=== PATIENT | female | born 1980 | race Caucasian/White ===

== ENCOUNTER 2016-12-26 15:14 | Emergency (ER) | payer SELFPAY ==
--- NOTE | 2016-12-26 16:30 | ER Document Report ---
ED Medical Screen (RME) - General Chief Complaint: Pain With Urination Stated Complaint: POSSIBLE UTI Time seen by provider: 16:27 Mode of Arrival: Ambulatory Information source: Patient Notes: This is a 36-year-old female with a history of multiple UTIs who presents to the emergency room with some lower back pain and frequency consistent with previous UTI. Patient denies nausea, vomiting, fever. She denies vaginal discharge. She states that she just started her period. TRAVEL OUTSIDE OF THE [place] IN LAST 30 DAYS: No - HPI Onset: Just prior to arrival Onset/Duration: Gradual Quality of pain: No pain Severity: None Pain Level: Denies Exacerbated by: Denies Relieved by: Denies Similar symptoms previously: Yes Recently seen / treated by doctor: No - Related Data Smoking: Non-smoker Frequency of alcohol use: None Drug Abuse: None Allergies/Adverse Reactions: No Known Allergies Allergy (Verified 12/26/16 15:31) Past Medical History - General Information source: Patient - Social History Cigarette use (# per day): No Chew tobacco use (# tins/day): No Frequency of alcohol use: None Drug Abuse: None Lives with: Family Family history: Reviewed & Not Pertinent - Past Medical History Cardiac Medical History: Reports: None EENT Medical History: Reports: None Neurological Medical History: Reports: None. Denies: Hx Seizures Endocrine Medical History: Reports: None Renal/ Medical History: Reports: Hx Ovarian Cysts, Other - Multiple UTIs. Denies: Hx Peritoneal Dialysis Malignancy Medical History: Reports: None GI Medical History: Reports: None Musculoskeltal Medical History: Reports None Skin Medical History: Reports None Psychiatric Medical History: Reports: Hx Depression Past Surgical History: Reports: Hx Cholecystectomy, Hx Tubal Ligation. Denies: Hx Hysterectomy - Immunizations Hx Diphtheria, Pertussis, Tetanus Vaccination: Yes Review of Systems - Review of Systems Constitutional: denies: Chills, Fever EENT: No symptoms reported Cardiovascular: No symptoms reported Respiratory: No symptoms reported Gastrointestinal: No symptoms reported Genitourinary: See HPI Female Genitourinary: No symptoms reported Musculoskeletal: See HPI Skin: No symptoms reported Hematologic/Lymphatic: No symptoms reported Neurological/Psychological: No symptoms reported Physical Exam - Vital signs Vitals: Temp Pulse Resp BP Pulse Ox 98.6 F 90 16 124/86 H 99 12/26/16 15:34 12/26/16 15:34 12/26/16 15:34 12/26/16 15:34 12/26/16 15:34 Notes: Physical exam: GENERAL: 36-year-old female, alert and at 3, no acute distress HEAD: Atraumatic, normocephalic. EYES: Pupils equal round and reactive to light, extraocular movements intact, sclera anicteric, conjunctiva are normal. ENT: Moist mucous membranes. NECK: Normal range of motion, supple LUNGS: Breath sounds clear to auscultation bilaterally and equal. No wheezes rales or rhonchi. HEART: Regular rate and rhythm without murmurs, rubs or gallops. ABDOMEN: Soft, normoactive bowel sounds. No tenderness to palpation. No guarding, no rebound. No masses appreciated. EXTREMITIES: Normal range of motion, no pitting or edema. No clubbing or cyanosis. NEUROLOGICAL: Cranial nerves II through XII grossly intact. Normal speech, normal gait. PSYCH: Normal mood, normal affect. SKIN: Warm, Dry, normal turgor, no rashes or lesions noted. Course - Vital Signs Vital signs: Temp Pulse Resp BP Pulse Ox 98.6 F 90 16 124/86 H 99 12/26/16 15:34 12/26/16 15:34 12/26/16 15:34 12/26/16 15:34 12/26/16 15:34 - Laboratory Result Diagrams: 12/26/16 16:30 12/26/16 17:10 Laboratory results interpreted by me: 12/26/16 16:30 Urine Blood MODERATE H Ur Leukocyte Esterase TRACE H Doctor's Discharge - Discharge Clinical Impression: back pain, fatigue Condition: Stable Disposition: HOME, SELF-CARE Additional Instructions: As we discussed, your kidney function tests looked good. The initial urinalysis looked okay, but I did send a urine culture which will take 2 days to come back. Your anemia studies sugar studies look good. Recommendations: Rest, drink plenty of fluids, take ibuprofen for back pain Follow-up with a primary care doctor: Bring a copy of today's labs with the with you when you go to that appointment. Return to the ER for any concerns he getting worse: Worsening back pain, fever ( temperature greater than 100.5), abdominal pain.
[2016-12-26 16:55] LABS: ABSOLUTE BASOPHILS # (AUTO) 0.1 10^3/uL (0.0-0.2); ABSOLUTE EOSINOPHILS # (AUTO) 0.1 10^3/uL (0.0-0.6); ABSOLUTE LYMPHOCYTES (AUTO) 2.5 10^3/uL (0.5-4.7); ABSOLUTE MONOCYTES (AUTO) 0.6 10^3/uL (0.1-1.4); ABSOLUTE NEUT (AUTO) 4.3 10^3/uL (1.7-8.2); BASOPHILS % (AUTO) 0.7 % (0-2); EOSINOPHILS % (AUTO) 1.3 % (0-6); HEMATOCRIT 40.8 % (36.0-47.0); HEMOGLOBIN 13.6 g/dL (12.0-15.5); LYMPHOCYTES % (AUTO) 33.5 % (13-45); MEAN CORPUSCULAR HEMOGLOBIN 29.1 pg (27.0-33.4); MEAN CORPUSCULAR HGB CONC 33.3 g/dL (32.0-36.0); MEAN CORPUSCULAR VOLUME 87 fl (80-97); MONOCYTES % (AUTO) 7.7 % (3-13); RED BLOOD COUNT 4.67 10^6/uL (3.72-5.28); RED CELL DISTRIBUTION WIDTH 13.5 % (11.5-14.0); SEGMENTED NEUTROPHILS % (AUTO) 56.8 % (42-78); WHITE BLOOD COUNT 7.6 10^3/uL (4.0-10.5)
[2016-12-26 16:58] LABS: APPEARANCE,URINE CLEAR; BILIRUBIN,URINE NEGATIVE (NEGATIVE); GLUCOSE, URINE NEGATIVE (NEGATIVE); KETONES,URINE NEGATIVE (NEGATIVE); LEUKOCYTE ESTERASE,URINE TRACE (NEGATIVE); NITRITE,URINE NEGATIVE (NEGATIVE); PROTEIN,URINE NEGATIVE (NEGATIVE); URINE SPECIFIC GRAVITY 1.004; UROBILINOGEN,URINE NEGATIVE mg/dL (<2.0)
[2016-12-26 17:44] LABS: BLOOD UREA NITROGEN 9 mg/dL (7-20); CALCIUM 9.9 mg/dL (8.4-10.2); CARBON DIOXIDE 25 mmol/L (22-30); CHLORIDE 105 mmol/L (98-107); CREATININE RESULT 0.73 mg/dL (0.52-1.25); GLUCOSE 90 mg/dL (75-110); SODIUM 141.9 mmol/L (137-145)
[2016-12-26 17:45] LABS: ALANINE AMINOTRANSFERASE 32 U/L (9-52); ALBUMIN 4.3 g/dL (3.5-5.0); ALKALINE PHOSPHATASE 65 U/L (38-126); ANION GAP 12 (5-19); ASPARTATE AMINO TRANSFERASE 18 U/L (14-36); BILIRUBIN,DIRECT 0.3 mg/dL (0.0-0.4); BILIRUBIN,TOTAL 0.7 mg/dL (0.2-1.3); POTASSIUM 4.6 mmol/L (3.6-5.0); TOTAL PROTEIN 7.8 g/dL (6.3-8.2)
[2016-12-26 18:04] VITALS: BP 112/84
== END 2016-12-26 18:05 | disposition home or self-care (01) ==
LOC: ER 15:14
DX: M54.5 Low back pain (principal); R53.83 Other fatigue; Z87.440 Personal history of urinary (tract) infections
CPT/HCPCS: 36415; 80053; 81001; 84702; 85025; 87086; 99283

== ENCOUNTER 2017-04-20 10:33 | Emergency (ER) | payer OTHER ==
[2017-04-20] MEDS ORDERED: MORPHINE SULFATE 10 MG/ML INJ IM ONE (11:09)
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
[2017-04-20 12:38] VITALS: BP 120/80
== END 2017-04-20 12:38 | disposition home or self-care (01) ==
LOC: ER 10:33
DX: S39.012A Strain of muscle, fascia and tendon of lower back, initial encounter (principal); S16.1XXA Strain of muscle, fascia and tendon at neck level, initial encounter; V43.52XA Car driver injured in collision with other type car in traffic accident, initial encounter; M54.2 Cervicalgia
CPT/HCPCS: 99284; 96372; 72110; 72125; J2270

== ENCOUNTER 2017-04-21 16:25 | Emergency (ER) | payer OTHER ==
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
[2017-04-21 17:53] LABS: ABSOLUTE EOSINOPHILS # (AUTO) 0.2 10^3/uL (0.0-0.6); ABSOLUTE LYMPHOCYTES (AUTO) 2.3 10^3/uL (0.5-4.7); ABSOLUTE MONOCYTES (AUTO) 0.6 10^3/uL (0.1-1.4); BASOPHILS % (AUTO) 0.5 % (0-2); EOSINOPHILS % (AUTO) 2.7 % (0-6); HEMATOCRIT 37.7 % (36.0-47.0); HEMOGLOBIN 12.5 g/dL (12.0-15.5); HGB HCT DIFFERENCE -0.2; LYMPHOCYTES % (AUTO) 32.8 % (13-45); MEAN CORPUSCULAR HEMOGLOBIN 29.5 pg (27.0-33.4); MEAN CORPUSCULAR HGB CONC 33.3 g/dL (32.0-36.0); MEAN CORPUSCULAR VOLUME 89 fl (80-97); MONOCYTES % (AUTO) 7.9 % (3-13); RED BLOOD COUNT 4.25 10^6/uL (3.72-5.28); RED CELL DISTRIBUTION WIDTH 13.5 % (11.5-14.0); SEGMENTED NEUTROPHILS % (AUTO) 56.1 % (42-78); WHITE BLOOD COUNT 7.1 10^3/uL (4.0-10.5)
[2017-04-21 18:07] LABS: APPEARANCE,URINE SLIGHTLY-CLOUDY; BILIRUBIN,URINE NEGATIVE (NEGATIVE); GLUCOSE, URINE NEGATIVE (NEGATIVE); KETONES,URINE NEGATIVE (NEGATIVE); LEUKOCYTE ESTERASE,URINE MODERATE (NEGATIVE); NITRITE,URINE NEGATIVE (NEGATIVE); PROTEIN,URINE NEGATIVE (NEGATIVE)
[2017-04-21 18:12] LABS: ALANINE AMINOTRANSFERASE 28 U/L (9-52); ALKALINE PHOSPHATASE 64 U/L (38-126); ANION GAP 11 (5-19); ASPARTATE AMINO TRANSFERASE 18 U/L (14-36); BILIRUBIN,DIRECT 0.4 mg/dL (0.0-0.4); BILIRUBIN,TOTAL 0.4 mg/dL (0.2-1.3); BLOOD UREA NITROGEN 7 mg/dL (7-20); CALCIUM 9.4 mg/dL (8.4-10.2); CARBON DIOXIDE 28 mmol/L (22-30); CHLORIDE 103 mmol/L (98-107); CREATININE RESULT 0.77 mg/dL (0.52-1.25); GLUCOSE 83 mg/dL (75-110); LIPASE 61.3 U/L (23-300); POTASSIUM 3.7 mmol/L (3.6-5.0); SODIUM 141.6 mmol/L (137-145); TOTAL PROTEIN 7.2 g/dL (6.3-8.2)
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
[2017-04-21 19:29] VITALS: BP 116/77
== END 2017-04-21 19:26 | disposition home or self-care (01) ==
LOC: ER 16:25
DX: N30.01 Acute cystitis with hematuria (principal); R10.2 Pelvic and perineal pain; R10.9 Unspecified abdominal pain; R51 Headache; M54.2 Cervicalgia; M54.9 Dorsalgia, unspecified; V89.2XXD Person injured in unspecified motor-vehicle accident, traffic, subsequent encounter
CPT/HCPCS: 36415; 70450; 74177; 80053; 81001; 83690; 84703; 85025; 99284

== ENCOUNTER 2018-04-02 09:34 | Emergency (ER) | payer OTHER ==
[2018-04-02] MEDS ORDERED: BACLOFEN 20 MG TABLET PO ONE (10:21)
[2018-04-02] MEDS ORDERED: KETOROLAC TROMETHAMINE INJ/PF 30 MG/1 ML SDV IV ONE (10:21)
--- NOTE | 2018-04-02 10:22 | ER Document Report ---
ED Medical Screen (RME) - General Chief Complaint: Abdominal Pain Stated Complaint: PELVIC PAIN Time Seen by Provider: 04/02/18 10:19 Notes: 37 years old female presents today with right lower quadrant abdominal pain as well as right lower back pain sometimes radiating to the upper thigh. Going on for the last few days. She was moving furniture last week. Has a history of polycystic ovarian syndrome. Denies any dysuria frequency urgency. Denies any nausea vomiting. Denies any fever chills or other constitutional symptoms. TRAVEL OUTSIDE OF THE [place] IN LAST 30 DAYS: No - Related Data Allergies/Adverse Reactions: No Known Allergies Allergy (Verified 04/21/17 16:31) Past Medical History - Social History Family history: Reviewed & Not Pertinent Neurological Medical History: Denies: Hx Seizures Renal/ Medical History: Reports: Hx Ovarian Cysts. Denies: Hx Peritoneal Dialysis Psychiatric Medical History: Reports: Hx Depression Past Surgical History: Reports: Hx Cholecystectomy, Hx Tubal Ligation. Denies: Hx Hysterectomy - Immunizations Hx Diphtheria, Pertussis, Tetanus Vaccination: Yes Physical Exam - Vital signs Vitals: Temp Pulse Resp BP Pulse Ox 98.1 F 77 16 132/91 H 98 04/02/18 10:05 04/02/18 10:05 04/02/18 10:05 04/02/18 10:05 04/02/18 10:05 Course - Vital Signs Vital signs: Temp Pulse Resp BP Pulse Ox 98.1 F 77 16 132/91 H 98 04/02/18 10:05 04/02/18 10:05 04/02/18 10:05 04/02/18 10:05 04/02/18 10:05 Doctor's Discharge - Discharge Referrals: KARI DUNLAP MD [Primary Care Provider] - Follow up as needed
[2018-04-02 11:14] LABS: ABSOLUTE EOSINOPHILS # (AUTO) 0.2 10^3/uL (0.0-0.6); ABSOLUTE LYMPHOCYTES (AUTO) 2.4 10^3/uL (0.5-4.7); ABSOLUTE MONOCYTES (AUTO) 0.4 10^3/uL (0.1-1.4); ABSOLUTE NEUT (AUTO) 2.9 10^3/uL (1.7-8.2); BASOPHILS % (AUTO) 0.8 % (0-2); EOSINOPHILS % (AUTO) 3.3 % (0-6); HEMOGLOBIN 14.8 g/dL (12.0-15.5); LYMPHOCYTES % (AUTO) 40.6 % (13-45); MEAN CORPUSCULAR HEMOGLOBIN 30.1 pg (27.0-33.4); MEAN CORPUSCULAR HGB CONC 34.4 g/dL (32.0-36.0); MEAN CORPUSCULAR VOLUME 88 fl (80-97); MONOCYTES % (AUTO) 6.5 % (3-13); PLATELET COUNT 324 10^3/uL (150-450); RED BLOOD COUNT 4.91 10^6/uL (3.72-5.28); RED CELL DISTRIBUTION WIDTH 13.6 % (11.5-14.0); SEGMENTED NEUTROPHILS % (AUTO) 48.8 % (42-78); TOTAL CELLS COUNTED % (AUTO) 100 %
--- NOTE | 2018-04-02 11:18 | RADIOLOGY REPORT (SQ) ---
EXAM DESCRIPTION: L SPINE WHOLE COMPLETED DATE/TIME: 04/02/2018 11:07 am REASON FOR STUDY: Back pain COMPARISON: 04/20/2017 NUMBER OF VIEWS: Five views including obliques. TECHNIQUE: AP, lateral, oblique, and sacral radiographic images acquired of the lumbar spine. LIMITATIONS: None. FINDINGS: MINERALIZATION: Normal. SEGMENTATION: Normal. No transitional anatomy. ALIGNMENT: Normal. VERTEBRAE: Maintained height. No fracture or worrisome bone lesion. DISCS: Preserved height. No significant osteophytes or end plate irregularity. POSTERIOR ELEMENTS: Pedicles and facets are intact. No pars defect or posterior arch defects. HARDWARE: None in the spine. PARASPINAL SOFT TISSUES: Normal. PELVIS: Intact as visualized. No fractures or worrisome bone lesions. SI joints intact. OTHER: No other significant finding. IMPRESSION: NORMAL 5 VIEW LUMBAR SPINE. TECHNICAL DOCUMENTATION: JOB ID: [id number] [employer]- All Rights Reserved Reading location - IP/workstation name: [email or web address]
[2018-04-02 11:31] LABS: APPEARANCE,URINE CLOUDY; BILIRUBIN,URINE NEGATIVE (NEGATIVE); COLOR,URINE YELLOW; GLUCOSE, URINE NEGATIVE (NEGATIVE); KETONES,URINE NEGATIVE (NEGATIVE); LEUKOCYTE ESTERASE,URINE LARGE (NEGATIVE); NITRITE,URINE NEGATIVE (NEGATIVE); PROTEIN,URINE NEGATIVE (NEGATIVE); UROBILINOGEN,URINE NEGATIVE mg/dL (<2.0)
[2018-04-02 11:35] LABS: ALANINE AMINOTRANSFERASE 29 U/L (9-52); ALBUMIN 4.4 g/dL (3.5-5.0); ALKALINE PHOSPHATASE 72 U/L (38-126); ANION GAP 9 (5-19); ASPARTATE AMINO TRANSFERASE 29 U/L (14-36); BILIRUBIN,DIRECT 0.2 mg/dL (0.0-0.4); BILIRUBIN,TOTAL 0.4 mg/dL (0.2-1.3); BLOOD UREA NITROGEN 10 mg/dL (7-20); CALCIUM 9.2 mg/dL (8.4-10.2); CARBON DIOXIDE 28 mmol/L (22-30); CHLORIDE 106 mmol/L (98-107); GLUCOSE 84 mg/dL (75-110); SODIUM 142.9 mmol/L (137-145); TOTAL PROTEIN 8.6 g/dL (6.3-8.2)
--- NOTE | 2018-04-02 13:20 | ER Document Report ---
ED General - General Chief Complaint: Abdominal Pain Stated Complaint: PELVIC PAIN Time Seen by Provider: 04/02/18 10:19 Mode of Arrival: Ambulatory Information source: Patient TRAVEL OUTSIDE OF THE [place] IN LAST 30 DAYS: No - HPI Notes: 37-year-old female presents to the ED for right ovarian cyst pain radiates to her back 1 week. states she was moving furniture last week as well as a history of PCOS. Last menstrual period was 2 weeks ago. Patient states she has had a right ovarian cyst. Patient's last bowel movement was last night. denies any vaginal bleeding or pelvic pain. Patient supposed to be seen [facility] [employer] [facility] but cannot be seen until April 15. Patient states pain comes and goes, 5/10 throbbing and sharp intermittently. Denies fevers, chills, chest pain, palpitations, shortness of breath, dyspnea, nausea, vomiting, diarrhea, abdominal pain, hematuria,blurred vision, double vision, loss of vision, speech changes, LH, dizziness, syncope, headaches, wheezing, ST, URI, neck pain, weakness, bowel or bladder dysfunction, saddle anesthesia, numbness or tingling in bilateral upper or lower extremities equally, muscle paralysis, weakness in bilateral upper or lower extremities equally or rash. Denies IV drug use. - Related Data Allergies/Adverse Reactions: No Known Allergies Allergy (Verified 04/21/17 16:31) Past Medical History - General Information source: Patient - Social History Smoking Status: Never Smoker Family History: Reviewed & Not Pertinent Patient has suicidal ideation: No Patient has homicidal ideation: No Neurological Medical History: Denies: Hx Seizures Renal/ Medical History: Reports: Hx Ovarian Cysts. Denies: Hx Peritoneal Dialysis Psychiatric Medical History: Reports: Hx Depression Past Surgical History: Reports: Hx Cholecystectomy, Hx Tubal Ligation. Denies: Hx Hysterectomy - Immunizations Hx Diphtheria, Pertussis, Tetanus Vaccination: Yes Review of Systems - Review of Systems Constitutional: No symptoms reported EENT: No symptoms reported Cardiovascular: No symptoms reported Respiratory: No symptoms reported Gastrointestinal: See HPI Genitourinary: See HPI Female Genitourinary: No symptoms reported Musculoskeletal: No symptoms reported Skin: No symptoms reported Hematologic/Lymphatic: No symptoms reported Neurological/Psychological: No symptoms reported Physical Exam - Vital signs Vitals: Temp Pulse Resp BP Pulse Ox 98.1 F 77 16 132/91 H 98 04/02/18 10:05 08/07/18 10:05 04/02/18 10:05 04/02/18 10:05 04/02/18 10:05 - Notes Notes: PHYSICAL EXAMINATION: GENERAL: Well-appearing, well-nourished and in no acute distress. HEAD: Atraumatic, normocephalic. EYES: Pupils equal round and reactive to light, extraocular movements intact, conjunctiva are normal. ENT: Nares patent, oropharynx clear without exudates. Moist mucous membranes. NECK: Normal range of motion, supple without lymphadenopathy LUNGS: Breath sounds clear to auscultation bilaterally and equal. No wheezes rales or rhonchi. HEART: Regular rate and rhythm without murmurs ABDOMEN: Soft, nontender, nondistended abdomen. No guarding, no rebound. No masses appreciated. no cva tenderness bilaterally Female : pt refused Musculoskeletal: Normal range of motion, no pitting or edema. No cyanosis. Full range of motion of the back with flexion extension and rotation at hips. Normal hip rotation. DTR +2 in BLE equally. Strength 5 out of 5 both distally and proximally to bilateral lower extremities normal motor and sensory function in BLE equally. Distal pulses + 2 BLE equally. No lumbar paraspinal or spinal tenderness noted on examination. no CVA tenderness bilaterally. Femoral pulses + 2 bilaterally and equally. No abrasions, scars, lacerations, ecchymosis of any recent trauma. normal gait. NEUROLOGICAL: Cranial nerves grossly intact. Normal speech, normal gait. Normal sensory, motor exams. PSYCH: Normal mood, normal affect. SKIN: Warm, Dry, normal turgor, no rashes or lesions noted. Course - Re-evaluation Re-evalutation: 04/02/18 14:09 37-year-old female history of PCOS presents for evaluation of right ovarian cyst pain. Transvaginal ultrasound does show system fundus, free fluid, transvaginal ultrasound otherwise negative. Lumbar spine x-ray which was ordered in triage was negative for any acute fracture dislocations. CBC CMP unremarkable. Urinalysis shows a culture. Advised patient to follow-up with OB [facility] tomorrow for further. Patient states she was taking control to manage her PCO S, stopped taking because she had not seen the [facility] [employer] in a very long time. Patient did not want to do pelvic examination. Patient states her pain is under control after receiving Toradol and baclofen while in triage. after performing a Medical Screening Examination, I estimate there is LOW risk for ACUTE APPENDICITIS, BOWEL OBSTRUCTION, ACUTE CHOLECYSTITIS, osteomyelitis, epidural mass abscess or lesion, cauda equina syndrome, ruptured abdominal aortic aneurysm, personal history of cancer, herniated disc causing severe spinal stenosis cord compression, fracture, PERFORATED DIVERTICULITIS, INCARCERATED HERNIA, PANCREATITIS, PELVIC INFLAMMATORY DISEASE, PERFORATED ULCER , ECTOPIC , or TUBO-OVARIAN ABSCESS, thus I consider the discharge disposition reasonable. Also, there is no evidence or peritonitis, sepsis, or toxicity. I have reevaluated this patient multiple times and no significant life threatening changes are noted. The patient and I have discussed the diagnosis and risks, and we agree with discharging home with close follow-up with the understanding that symptoms and presentations can change. We also discussed returning to the Emergency Department immediately if new or worsening symptoms occur. We have discussed the symptoms which are most concerning (e.g., bloody stool, fever, weakness, numbness or tingling down bilateral lower extremities, change in bowel or bladder dysfunction changing or worsening pain, vomiting) that necessitate immediate return. - Vital Signs Vital signs: Temp Pulse Resp BP Pulse Ox 97.7 F 68 18 103/51 L 97 04/02/18 14:13 04/02/18 14:13 04/02/18 14:13 04/02/18 14:13 04/02/18 14:13 - Laboratory Result Diagrams: 04/02/18 10:39 04/02/18 10:39 Laboratory results interpreted by me: 04/02/18 04/02/18 10:39 10:39 Total Protein 8.6 H Ur Leukocyte Esterase LARGE H Discharge - Discharge Clinical Impression: Uterine fibroid Qualifiers: Uterine leiomyoma location: unspecified location Qualified Code(s): D25.9 - Leiomyoma of uterus, unspecified Condition: Stable Disposition: HOME, SELF-CARE Forms: Return to Work Referrals: KARI DUNLAP MD [Primary Care Provider] - Follow up in 3-5 days MAGGY ALMEIDA MD [ACTIVE STAFF] - Follow up in 3-5 days
--- NOTE | 2018-04-02 13:26 | RADIOLOGY REPORT (SQ) ---
EXAM DESCRIPTION: U/S NON OB PEL TV W/DOPPLER COMPLETED DATE/TIME: 04/02/2018 1:09 pm REASON FOR STUDY: Ovarian cyst COMPARISON: 12/15/2014 TECHNIQUE: Dynamic and static grayscale images acquired of the pelvis via transvaginal approach and recorded on PACS. Additional selected color Doppler and spectral images recorded. LIMITATIONS: None. FINDINGS: UTERUS: 2 cm fibroid posterior fundus. ENDOMETRIAL STRIPE: No focal or generalized thickening. No masses. CERVIX: No nabothian cysts. RIGHT OVARY AND DOPPLER: Normal size. No worrisome masses. Normal arterial vascular flow without evid ence for torsion. LEFT OVARY AND DOPPLER: Ovary not visualized. FREE FLUID: None noted. OTHER: No other significant finding. MEASUREMENTS: UTERUS: 9.2 x 6.2 x 5.6 cm ENDOMETRIAL STRIPE: 6 mm RIGHT OVARY: 3.3 x 2.4 x 1.7 cm LEFT OVARY: Not visualized. IMPRESSION: Uterine fibroid. No ovarian cyst identified. TECHNICAL DOCUMENTATION: JOB ID: [id number] [employer]- All Rights Reserved Reading location - IP/workstation name: [email or web address]
[2018-04-02 14:15] VITALS: BP 103/51
== END 2018-04-02 14:21 | disposition home or self-care (01) ==
LOC: ER 09:34
DX: D25.9 Leiomyoma of uterus, unspecified (principal); E28.2 Polycystic ovarian syndrome
CPT/HCPCS: 99284; 96374; 36415; 87086; 85025; 81025; 80053; 81001; 72110; 76830; 93976; J1885; J3490

== ENCOUNTER 2018-09-28 17:52 | Emergency (ER) | payer SELFPAY ==
[2018-09-28] MEDS ORDERED: ACETAMINOPHEN 325 MG TABLET PO ONE (18:28)
[2018-09-28] MEDS ORDERED: IBUPROFEN 600 MG TABLET PO ONE (18:28)
--- NOTE | 2018-09-28 19:12 | RADIOLOGY REPORT (SQ) ---
EXAM DESCRIPTION: SACRUM AND COCCYX COMPLETED DATE/TIME: 09/28/2018 6:53 pm REASON FOR STUDY: fall, pain COMPARISON: None. NUMBER OF VIEWS: Three views. TECHNIQUE: AP, lateral, and tilt views of the sacrum and coccyx. LIMITATIONS: None. FINDINGS: MINERALIZATION: Normal. BONES: No acute fracture or dislocation. No worrisome bone lesions. SOFT TISSUES: No soft tissue swelling. No foreign body. OTHER: No other significant finding. IMPRESSION: No acute fracture or dislocation. TECHNICAL DOCUMENTATION: JOB ID: [id number] [place]-72 2010 [employer]- All Rights Reserved Reading location - IP/workstation name: [email or web address]
--- NOTE | 2018-09-28 19:35 | ER Document Report ---
ED General - General Chief Complaint: Fall Stated Complaint: FALL - BACK/PELVIC PAIN Time Seen by Provider: 09/28/18 18:28 Primary Care Provider: KARI DUNLAP MD [Primary Care Provider] - Follow up as needed Notes: Patient is a 38-year-old female without chronic medical problems who presents after a mechanical trip and fall at a restaurant several hours prior to arrival. Patient states that she slipped, falling directly onto her bottom. States that initially she only had minimal pain. Went home, took a nap and states that she woke up she was much more sore and in much more pain prompting her to come to the emergency room for assessment. Describes a throbbing, aching, constant pain to her sacrum, pelvis and low back. Moving worsens the pain. Has not tried anything for improvement of the pain prior to arrival. No history of similar injuries in the past. Denies bowel or bladder incontinence. No urinary retention. No focal weakness or numbness. Has been able to walk without difficulty. Has not seen her general physician regarding today's concerns. TRAVEL OUTSIDE OF THE [place] IN LAST 30 DAYS: No - Related Data Allergies/Adverse Reactions: No Known Allergies Allergy (Verified 04/21/17 16:31) Past Medical History - General Information source: Patient - Social History Smoking Status: Current Every Day Smoker Frequency of alcohol use: None Drug Abuse: None Lives with: Spouse/Significant other Family History: Reviewed & Not Pertinent Patient has suicidal ideation: No Patient has homicidal ideation: No Neurological Medical History: Denies: Hx Seizures Renal/ Medical History: Reports: Hx Ovarian Cysts. Denies: Hx Peritoneal Dialysis Psychiatric Medical History: Reports: Hx Depression Past Surgical History: Reports: Hx Cholecystectomy, Hx Tubal Ligation. Denies: Hx Hysterectomy - Immunizations Hx Diphtheria, Pertussis, Tetanus Vaccination: Yes Review of Systems - Review of Systems Notes: Constitutional: Negative for fever. Eyes: Negative for visual changes. ENT: Negative for facial injury Cardiovascular: Negative for chest injury. Respiratory: Negative for shortness of breath. Gastrointestinal: Negative for abdominal injury. Genitourinary: Negative for genital injury Musculoskeletal: Positive for low back pain and pelvic pain Skin: Negative for laceration/abrasions. Neurological: Negative for head injury. Physical Exam - Vital signs Vitals: Temp Pulse Resp BP Pulse Ox 98.3 F 84 18 131/89 H 97 02/02/19 18:03 09/28/18 18:03 09/28/18 18:03 09/28/18 18:03 09/28/18 18:03 Interpretation: Normal Notes: PHYSICAL EXAMINATION: GENERAL: Well-appearing, no acute distress. HEAD: Atraumatic, normocephalic. EYES: Pupils equal round and reactive to light, extraocular movements intact, sclera anicteric, conjunctiva are normal. ENT: nares patent, no oral pharyngeal trauma. No hemotympanum, no Mcgowan's sign, no raccoon eyes. NECK: No midline cervical spine tenderness. Patient able to move their head to 45 bilaterally without any discomfort. LUNGS: Breath sounds clear to auscultation bilaterally and equal. No wheezes rales or rhonchi. HEART: Regular rate and rhythm without murmurs. CHEST WALL: No ecchymosis over the chest wall. ABDOMEN: Soft, nontender, normoactive bowel sounds. No guarding, no rebound. No abdominal bruising EXTREMITIES: Normal range of motion, no pitting or edema. No long bone deformities. BACK: No midline spinal tenderness, step-offs, or deformities. Mild pain on palpation of the coccyx and sacrum region. NEUROLOGICAL: 5 out of 5 strength both distally and proximally bilateral lower extremities. 2+ patellar reflexes bilaterally. No clonus. Sensation grossly intact in the bilateral lower extremities. Patient is able to ambulate without difficulty. PSYCH: Normal mood, normal affect. SKIN: Warm, Dry, normal turgor, no rashes or lesions noted. Course - Re-evaluation Re-evalutation: 09/28/18 19:33 Presentation of a well patient in no acute distress, vitals within normal limits after a mechanical fall. No focal neurologic deficits on exam, no evidence of basilar skull fracture on exam without evidence of hemotympanum, raccoon eyes, or periauricular hematoma. No papilledema. Patient is not on anticoagulation. GCS is 15. No loss of consciousness. No episodes of vomiting. Patient is therefore negative via [place] head CT criteria and CT imaging will not be obtained at this time. Patient also evaluated by nexus criteria and found to be negative. Patient is also negative by iranian C-spine criteria. No clinical evidence to suggest increased risk of cervical spine fracture. No indication for further imaging of the cervical spine. Patient did complain of pain to the coccyx and sacrum. X-ray of the affected area unremarkable. Patient has no focal deformities or limited range of motion in any joint space to indicate need for extremity imaging. Chest and abdominal exam are benign without any focal tenderness, shortness of breath, or bruising over the chest or abdominal wall. Patient has no flank tenderness. There is no obvious findings on trauma exam today and therefore no further imaging or evaluation will be obtained at this time. I've instructed the patient to return to emergency room immediately should they have any worsening or new symptoms that are concerning to them. - Vital Signs Vital signs: Temp Pulse Resp BP Pulse Ox 98.2 F 79 20 135/78 H 99 09/28/18 19:50 09/28/18 19:50 09/28/18 19:50 09/28/18 19:50 09/28/18 19:50 - Diagnostic Test Radiology reviewed: Reports reviewed Discharge - Discharge Clinical Impression: Sacral back pain Fall Qualifiers: Encounter type: initial encounter Qualified Code(s): W19.XXXA - Unspecified fall, initial encounter Low back pain Qualifiers: Chronicity: acute Back pain laterality: bilateral Sciatica presence: without sciatica Qualified Code(s): M54.5 - Low back pain Condition: Good Disposition: HOME, SELF-CARE Additional Instructions: You have been seen in the Emergency Department (ED) today following a mechanical fall. Your workup today did not reveal any injuries that require you to stay in the hospital. You can expect, though, to be stiff and sore for the next several days. For your pain: Take ibuprofen 600 mg and acetaminophen 1000 mg every 6 hours together as needed for pain. You can apply a hot pack or electric heating pad to the sore areas. You can also use topical "Aspercreme with lidocaine" to sore areas as needed. Please follow up with your primary care doctor as soon as possible regarding today's ED visit and your recent accident. Call your doctor or return to the ED if you develop a sudden or severe headache, confusion, slurred speech, facial droop, weakness or numbness in any arm or leg, extreme fatigue, vomiting more than two times, severe abdominal pain, or other symptoms that concern you. Referrals: KARI DUNLAP MD [Primary Care Provider] - Follow up as needed
[2018-09-28 20:01] VITALS: BP 135/78
== END 2018-09-28 19:52 | disposition home or self-care (01) ==
LOC: ER 17:52
DX: M54.5 Low back pain (principal); R10.2 Pelvic and perineal pain; W01.0XXA Fall on same level from slipping, tripping and stumbling without subsequent striking against object, initial encounter; Y92.511 Restaurant or cafe as the place of occurrence of the external cause
CPT/HCPCS: 72220; 99283

== ENCOUNTER 2019-07-31 10:37 | Emergency (ER) | payer SELFPAY ==
[2019-07-31] MEDS ORDERED: IBUPROFEN 800 MG TABLET PO ONE (10:51)
--- NOTE | 2019-07-31 10:54 | ER Document Report ---
ED Medical Screen (RME) - General Chief Complaint: Vaginal Bleeding Stated Complaint: VAGINAL BLEEDING/RIGHT PELVIC PAIN Time Seen by Provider: 07/31/19 10:46 Primary Care Provider: KARI DUNLAP MD [Primary Care Provider] - Follow up as needed Mode of Arrival: Ambulatory Information source: Patient TRAVEL OUTSIDE OF THE [place] IN LAST 30 DAYS: No - HPI Notes: 07/31/19 10:52 38 yr old female presents to the ER for evaluation of sudden onset vaginal bleeding that occurred approximately 3 days ago, getting progressively worse. Patient is going through more than 1 pad or tampon an hour. Patient does have history of right ovarian cyst, is not on any blood thinners of control. Pain is 7 out of 10, sharp and stabbing. Patient states she is currently on her menstrual cycle, she is unsure if her cycle is regular. Patient is unsure if she was due for her menstrual cycle or if this could possibly be a miscarriage. Denies any previous history of clotting disorders or bleeding disorders. Denies a primary care provider. I have greeted and performed a rapid initial assessment of this patient. A comprehensive ED assessment and evaluation of the patient, analysis of test results and completion of the medical decision making process will be conducted by additional ED providers. PHYSICAL EXAMINATION: GENERAL: Well-appearing, well-nourished and in no acute distress. HEAD: Atraumatic, normocephalic. LUNGS: No respiratory distress Musculoskeletal: Normal range of motion ABD: suprapubic tenderness NEUROLOGICAL: Normal speech, normal gait. PSYCH: Normal mood, normal affect. SKIN: Warm, Dry, normal turgor, no rashes or lesions noted. - Related Data Allergies/Adverse Reactions: No Known Allergies Allergy (Verified 07/31/19 10:48) Past Medical History - Social History Family history: Reviewed & Not Pertinent Neurological Medical History: Denies: Hx Seizures Renal/ Medical History: Reports: Hx Ovarian Cysts - PCOS. Denies: Hx Peritoneal Dialysis Psychiatric Medical History: Reports: Hx Depression Past Surgical History: Reports: Hx Cholecystectomy, Hx Tubal Ligation. Denies: Hx Hysterectomy - Immunizations Hx Diphtheria, Pertussis, Tetanus Vaccination: Yes Doctor's Discharge - Discharge Referrals: KARI DUNLAP MD [Primary Care Provider] - Follow up as needed
--- NOTE | 2019-07-31 11:27 | ER Document Report ---
ED General - General Chief Complaint: Vaginal Bleeding Stated Complaint: VAGINAL BLEEDING/RIGHT PELVIC PAIN Time Seen by Provider: 07/31/19 10:46 Primary Care Provider: KARI DUNLAP MD [Primary Care Provider] - Follow up in 3-5 days Mode of Arrival: Ambulatory Information source: Patient Notes: 38-year-old female with history of ovarian cyst presents today with complaints of vaginal bleeding. Reports for the past 4- 5 months her menses have become heavier and lasted longer. She reports she is on her current menses. She reports this is the fourth day and it is still very heavy. She has started wearing depends instead of kotex or tampons. She has changed her depends twice today. She reports some lower abdominal cramping. Denies fever vomiting marie rrhea. Reports her mom and younger sister went through this and they both have hysterectomies. TRAVEL OUTSIDE OF THE [place] IN LAST 30 DAYS: No - HPI Onset: Other Onset/Duration: Persistent Quality of pain: Achy Associated symptoms: None Exacerbated by: Denies Relieved by: Denies Similar symptoms previously: Yes Recently seen / treated by doctor: No - Related Data Allergies/Adverse Reactions: No Known Allergies Allergy (Verified 07/31/19 10:48) Past Medical History - General Information source: Patient - Social History Smoking Status: Never Smoker Chew tobacco use (# tins/day): No Frequency of alcohol use: Rare Drug Abuse: None Occupation: the [employer] Lives with: Family Family History: Reviewed & Not Pertinent, Other - cyst-hysterectomy- mom and si ster Patient has suicidal ideation: No Patient has homicidal ideation: No Neurological Medical History: Denies: Hx Seizures Renal/ Medical History: Reports: Hx Ovarian Cysts - PCOS. Denies: Hx Simin toneal Dialysis Psychiatric Medical History: Reports: Hx Depression Past Surgical History: Reports: Hx Cholecystectomy, Hx Tubal Ligation. Denies: Hx Hysterectomy - Immunizations Hx Diphtheria, Pertussis, Tetanus Vaccination: Yes Review of Systems - Review of Systems Notes: Review HPI for review of systems., All other systems negative Physical Exam - Vital signs Vitals: Temp Pulse Resp BP Pulse Ox 98 F 90 18 126/82 H 98 07/31/19 10:48 07/31/19 10:48 07/31/19 10:48 07/31/19 10:48 07/31/19 10:48 - Notes Notes: PHYSICAL EXAMINATION: GENERAL: Well-appearing and in no acute distress HEAD: Atraumatic, normocephalic. EYES: Pupils equal round and reactive to light, extraocular movements intact, sclera anicteric, conjunctiva are normal. ENT: nares patent, Moist mucous membranes. NECK: Normal range of motion, supple without lymphadenopathy LUNGS: CTAB and equal. No wheezes rales or rhonchi. HEART: Regular rate and rhythm without murmurs ABDOMEN: Soft, no tenderness. No guarding, no rebound BACK: Denies pain EXTREMITIES: Normal range of motion, NEUROLOGICAL: Cranial nerves grossly intact. PSYCH: Normal mood, normal affect. SKIN: Warm, Dry, normal turgor, no rashes or lesions noted Course - Re-evaluation Re-evalutation: 07/31/19 12:29 38-year-old female with reports of heavy menses for the past 4 months. Reports this current menses has lasted 4 days and still very heavy. Wears depends acidic Kotex or tampons. Labs returned unremarkable. Ultrasound shows uterine fibroid. Patient was instructed on this instructed to follow-up with MANAGER [facility]PLICATION to discuss plan of care. She verbalized understanding. 07/31/19 11:00 07/31/19 11:00 MCV 87 fl (80-97) 07/31/19 11:00 MCH 29.6 pg (27.0-33.4) 07/31/19 11:00 MCHC 33.9 g/dL (32.0-36.0) 07/31/19 11:00 RDW 13.8 % (11.5-14.0) 07/31/19 11:00 Seg Neutrophils % 51.5 % (42-78) 07/31/19 11:00 Chloride 106 mmol/L (98-107) 07/31/19 11:00 Carbon Dioxide 27 mmol/L (22-30) 07/31/19 11:00 Anion Gap 8 (5-19) 07/31/19 11:00 Est GFR ( Amer) > 60 (>60) 07/31/19 11:00 Glucose 89 mg/dL (75-110) 07/31/19 11:00 Calcium 9.3 mg/dL (8.4-10.2) 07/31/19 11:00 Total Bilirubin 0.4 mg/dL (0.2-1.3) 07/31/19 11:00 AST 27 U/L (14-36) 07/31/19 11:00 Alkaline Phosphatase 73 U/L (38-126) 07/31/19 11:00 Total Protein 7.9 g/dL (6.3-8.2) 07/31/19 11:00 Albumin 4.2 g/dL (3.5-5.0) 07/31/19 11:00 Lipase 61.5 U/L (23-300) 07/31/19 11:00 Transvaginal US 07/31/19 10:50 IMPRESSION: There is a 39 mm fibroid. No other significant finding. 07/31/19 13:18 - Vital Signs Vital signs: Temp Pulse Resp BP Pulse Ox 98.1 F 74 20 130/83 H 100 07/31/19 13:32 07/31/19 13:32 07/31/19 13:32 07/31/19 13:32 07/31/19 13:32 - Laboratory Result Diagrams: 07/31/19 11:00 07/31/19 11:00 Laboratory results interpreted by me: 07/31/19 12:42 Urine Blood LARGE H - Diagnostic Test Radiology reviewed: Image reviewed, Reports reviewed Discharge - Discharge Clinical Impression: Vaginal bleeding Uterine fibroid Qualifiers: Uterine leiomyoma location: unspecified location Qualified Code(s): D25.9 - Leiomyoma of uterus, unspecified Condition: Stable Disposition: HOME, SELF-CARE Instructions: [employer] Doctors Additional Instructions: *You have been evaluated for vaginal bleeding, uterine fibroid *Take ibuprofen as indicated for pain *Follow up with your SHOVEL HANDLE ASSEMBLER or the health department for recheck within one week and to discuss plan of care *Return to ED for worsening condition, changes, needs, worsening bleeding, concerns Monitor your blood pressure. Your blood pressure was elevated today. This may be because you were anxious, in pain or because you need medication. It is important to follow up with your primary care provider for full evaluation. Forms: Elevated Blood Pressure, Return to Work Referrals: KARI DUNLAP MD [Primary Care Provider] - Follow up in 3-5 days
[2019-07-31 11:28] LABS: ABSOLUTE EOSINOPHILS # (AUTO) 0.2 10^3/uL (0.0-0.6); ABSOLUTE LYMPHOCYTES (AUTO) 1.8 10^3/uL (0.5-4.7); ABSOLUTE MONOCYTES (AUTO) 0.4 10^3/uL (0.1-1.4); ABSOLUTE NEUT (AUTO) 2.5 10^3/uL (1.7-8.2); BASOPHILS % (AUTO) 0.6 % (0-2); HEMATOCRIT 41.4 % (36.0-47.0); LYMPHOCYTES % (AUTO) 36.5 % (13-45); MEAN CORPUSCULAR HEMOGLOBIN 29.6 pg (27.0-33.4); MEAN CORPUSCULAR HGB CONC 33.9 g/dL (32.0-36.0); MEAN CORPUSCULAR VOLUME 87 fl (80-97); MONOCYTES % (AUTO) 7.4 % (3-13); PLATELET COUNT 310 10^3/uL (150-450); RED BLOOD COUNT 4.74 10^6/uL (3.72-5.28); RED CELL DISTRIBUTION WIDTH 13.8 % (11.5-14.0); SEGMENTED NEUTROPHILS % (AUTO) 51.5 % (42-78); TOTAL CELLS COUNTED % (AUTO) 100 %; WHITE BLOOD COUNT 4.9 10^3/uL (4.0-10.5)
[2019-07-31 11:42] LABS: ALBUMIN 4.2 g/dL (3.5-5.0); ALKALINE PHOSPHATASE 73 U/L (38-126); ANION GAP 8 (5-19); ASPARTATE AMINO TRANSFERASE 27 U/L (14-36); BILIRUBIN,DIRECT 0.1 mg/dL (0.0-0.4); BILIRUBIN,TOTAL 0.4 mg/dL (0.2-1.3); BLOOD UREA NITROGEN 7 mg/dL (7-20); CALCIUM 9.3 mg/dL (8.4-10.2); CARBON DIOXIDE 27 mmol/L (22-30); CHLORIDE 106 mmol/L (98-107); GLUCOSE 89 mg/dL (75-110); POTASSIUM 4.9 mmol/L (3.6-5.0); TOTAL PROTEIN 7.9 g/dL (6.3-8.2)
--- NOTE | 2019-07-31 12:15 | RADIOLOGY REPORT (SQ) ---
EXAM DESCRIPTION: U/S NON OB PEL TV W/DOPPLER COMPLETED DATE/TIME: 07/31/2019 11:41 am REASON FOR STUDY: sudden onset vag bleeding x 3 days LMP 07/27/2019 COMPARISON: 12/21/2018 TECHNIQUE: Dynamic and static grayscale images acquired of the pelvis via transvaginal approach and recorded on PACS. Additional selected color Doppler and spectral images recorded. LIMITATIONS: None. FINDINGS: UTERUS: There appears to be a 3.9 cm fibroid. ENDOMETRIAL STRIPE: No focal or generalized thickening. No masses. CERVIX: 2.8 cm. No nabothian cysts. RIGHT OVARY AND DOPPLER: Normal size. No worrisome masses. Normal arterial vascular flow without evid ence for torsion. LEFT OVARY AND DOPPLER: Normal size. No worrisome masses. Normal arterial vascular flow without evide nce for torsion. FREE FLUID: None noted. OTHER: No other significant finding. MEASUREMENTS: UTERUS: 10.2 x 7.1 x 6.7 cm. ENDOMETRIAL STRIPE: 4 mm. RIGHT OVARY: 3.8 x 2.6 x 2.3 cm. LEFT OVARY: 2.4 x 2.2 x 2 cm. IMPRESSION: There is a 39 mm fibroid. No other significant finding. TECHNICAL DOCUMENTATION: JOB ID: [id number]- All Rights Reserved Rev-01/11 Reading location - IP/workstation name: [email or web address]
[2019-07-31 13:06] LABS: APPEARANCE,URINE CLEAR; BILIRUBIN,URINE NEGATIVE (NEGATIVE); COLOR,URINE STRAW; GLUCOSE, URINE NEGATIVE (NEGATIVE); KETONES,URINE NEGATIVE (NEGATIVE); LEUKOCYTE ESTERASE,URINE NEGATIVE (NEGATIVE); NITRITE,URINE NEGATIVE (NEGATIVE); PROTEIN,URINE NEGATIVE (NEGATIVE); URINE SPECIFIC GRAVITY 1.004; UROBILINOGEN,URINE NEGATIVE mg/dL (<2.0)
[2019-07-31 13:32] VITALS: BP 130/83
== END 2019-07-31 13:32 | disposition home or self-care (01) ==
LOC: ER 10:37
DX: N92.0 Excessive and frequent menstruation with regular cycle (principal); D25.9 Leiomyoma of uterus, unspecified; R10.2 Pelvic and perineal pain; Z98.51 Tubal ligation status; Z90.49 Acquired absence of other specified parts of digestive tract
CPT/HCPCS: 36415; 76830; 80053; 81001; 81025; 83690; 84703; 85025; 93976; 99284

== ENCOUNTER 2019-09-07 10:35 | Emergency (ER) | payer BC ==
--- NOTE | 2019-09-07 11:38 | ER Document Report ---
ED Medical Screen (RME) - General Chief Complaint: Chest Pain Stated Complaint: NAUSEA,HEADACHE,DIZZINESS,CHEST PAIN Time Seen by Provider: 09/07/19 11:07 Primary Care Provider: KARI DUNLAP MD [Primary Care Provider] - Follow up as needed Mode of Arrival: Ambulatory Information source: Patient Notes: 38-year-old female presented emergency department chief complaint of chest pain and near syncope. Patient reports chest pain has been intermittent over the last few days, states that she feels chest pain every time her heartbeats. She also reports this morning she was getting ready for work and she thinks that she may have passed out. She denies having chest pain at the time of her possible syncopal episode. She reports associated nausea with occasional vomiting. Exam: Heart sounds S1-S2 present, regular rate, regular rhythm. Lung sounds clear and equal bilaterally. I have greeted and performed a rapid initial assessment of this patient. A com prehensive ED assessment and evaluation of the patient, analysis of test results and completion of the medical decision making process will be conducted by additional ED providers. I have specifically instructed the patient or family members with the patient to immediately return to any nursing staff should anything change in the patient's condition or with their chief complaint. TRAVEL OUTSIDE OF THE [place] IN LAST 30 DAYS: No - Related Data Allergies/Adverse Reactions: No Known Allergies Allergy (Verified 07/31/19 10:48) Home Medications: Medroxyprogesterone control Past Medical History - Social History Family history: Reviewed & Not Pertinent Neurological Medical History: Denies: Hx Seizures Renal/ Medical History: Reports: Hx Ovarian Cysts - PCOS. Denies: Hx Perit varghese Dialysis Psychiatric Medical History: Reports: Hx Depression Past Surgical History: Reports: Hx Cholecystectomy, Hx Tubal Ligation. Denies: Hx Hysterectomy - Immunizations Hx Diphtheria, Pertussis, Tetanus Vaccination: Yes Physical Exam - Vital signs Vitals: Temp Pulse Resp BP Pulse Ox 98.6 F 77 16 128/84 H 95 09/07/19 10:52 09/07/19 10:52 09/07/19 10:52 09/07/19 10:52 09/07/19 10:52 Course - Vital Signs Vital signs: Temp Pulse Resp BP Pulse Ox 98.6 F 77 16 128/84 H 95 09/07/19 10:52 09/07/19 10:52 09/07/19 10:52 09/07/19 10:52 09/07/19 10:52 Doctor's Discharge - Discharge Referrals: KARI DUNLAP MD [Primary Care Provider] - Follow up as needed
--- NOTE | 2019-09-07 12:06 | RADIOLOGY REPORT (SQ) ---
EXAM DESCRIPTION: CHEST 2 VIEWS COMPLETED DATE/TIME: 09/07/2019 11:35 am REASON FOR STUDY: chest pain/near syncope COMPARISON: 12/21/2018. TECHNIQUE: Frontal and lateral radiographic views of the chest acquired. NUMBER OF VIEWS: Two view. LIMITATIONS: None. FINDINGS: LUNGS AND PLEURA: No opacities, masses or pneumothorax. No pleural effusion. MEDIASTINUM AND HILAR STRUCTURES: No masses or contour abnormalities. HEART AND VASCULAR STRUCTURES: Heart normal size. No evidence for failure. BONES: No acute findings. HARDWARE: None in the chest. OTHER: No other significant finding. IMPRESSION: NO SIGNIFICANT RADIOGRAPHIC FINDING IN THE CHEST. TECHNICAL DOCUMENTATION: JOB ID: [id number] [employer]- All Rights Reserved Reading location - IP/workstation name: [email or web address]
[2019-09-07 12:11] LABS: ABSOLUTE EOSINOPHILS # (AUTO) 0.2 10^3/uL (0.0-0.6); ABSOLUTE LYMPHOCYTES (AUTO) 2.3 10^3/uL (0.5-4.7); ABSOLUTE MONOCYTES (AUTO) 0.4 10^3/uL (0.1-1.4); ABSOLUTE NEUT (AUTO) 3.1 10^3/uL (1.7-8.2); BASOPHILS % (AUTO) 0.6 % (0-2); EOSINOPHILS % (AUTO) 2.6 % (0-6); HEMATOCRIT 41.7 % (36.0-47.0); LYMPHOCYTES % (AUTO) 38.4 % (13-45); MEAN CORPUSCULAR HEMOGLOBIN 29.6 pg (27.0-33.4); MEAN CORPUSCULAR HGB CONC 33.6 g/dL (32.0-36.0); MEAN CORPUSCULAR VOLUME 88 fl (80-97); MONOCYTES % (AUTO) 6.4 % (3-13); PLATELET COUNT 309 10^3/uL (150-450); RED BLOOD COUNT 4.73 10^6/uL (3.72-5.28); RED CELL DISTRIBUTION WIDTH 13.9 % (11.5-14.0); TOTAL CELLS COUNTED % (AUTO) 100 %; WHITE BLOOD COUNT 6.1 10^3/uL (4.0-10.5)
[2019-09-07 12:12] LABS: ALBUMIN 4.4 g/dL (3.5-5.0); ALKALINE PHOSPHATASE 71 U/L (38-126); ANION GAP 10 (5-19); ASPARTATE AMINO TRANSFERASE 24 U/L (14-36); BILIRUBIN,DIRECT 0.2 mg/dL (0.0-0.4); BILIRUBIN,TOTAL 0.6 mg/dL (0.2-1.3); BLOOD UREA NITROGEN 6 mg/dL (7-20); CALCIUM 9.7 mg/dL (8.4-10.2); CARBON DIOXIDE 26 mmol/L (22-30); CHLORIDE 103 mmol/L (98-107); GLUCOSE 84 mg/dL (75-110); POTASSIUM 4.2 mmol/L (3.6-5.0); TOTAL PROTEIN 8.2 g/dL (6.3-8.2)
--- NOTE | 2019-09-07 13:10 | ER Document Report ---
ED General - General Chief Complaint: Chest Pain Stated Complaint: NAUSEA,HEADACHE,DIZZINESS,CHEST PAIN Time Seen by Provider: 09/07/19 11:07 Primary Care Provider: KARI DUNLAP MD [Primary Care Provider] - Follow up as needed Mode of Arrival: Ambulatory TRAVEL OUTSIDE OF THE [place] IN LAST 30 DAYS: No - HPI Notes: Patient is a 38-year-old female who presents to the emergency department for evaluation of chest pain for the last 3 days as well as a possible syncopal episode. The patient states that her chest has been hurting "with the second to beat of her heart." She states that the pain has been present intermittently for the last 3 days. She cannot tell me how long it lasts. She denies any exacerbating or relieving factors. She states she has had some nausea with it. She denies any shortness of breath. It is not pleuritic in nature. She has had no cough. She states this morning she believes she may have passed out, but really will not elaborate any further on this for me at this time. She is currently chest pain-free. Patient notes she just recently started medroxyprogesterone for menorrhagia associated with her PCOS. She is not on any sort of estrogen with it. She denies any family history of blood clots, no personal history of DVT or PE. She has no personal history of cancer, no recent prolonged immobilization. She denies any calf tenderness or recent surgery. - Related Data Allergies/Adverse Reactions: No Known Allergies Allergy (Verified 07/31/19 10:48) Home Medications: Medroxyprogesterone Past Medical History - General Information source: Patient - Social History Smoking Status: Never Smoker Family History: Reviewed & Not Pertinent, Other - cyst-hysterectomy- mom and sister Patient has suicidal ideation: No Patient has homicidal ideation: No Neurological Medical History: Denies: Hx Seizures Renal/ Medical History: Reports: Hx Ovarian Cysts - PCOS. Denies: Hx Peritoneal Dialysis Psychiatric Medical History: Reports: Hx Depression Past Surgical History: Reports: Hx Cholecystectomy, Hx Tubal Ligation. Denies: Hx Hysterectomy - Immunizations Hx Diphtheria, Pertussis, Tetanus Vaccination: Yes Review of Systems - Review of Systems Constitutional: No symptoms reported EENT: No symptoms reported Cardiovascular: See HPI Respiratory: No symptoms reported Gastrointestinal: See HPI Genitourinary: No symptoms reported Female Genitourinary: See HPI Musculoskeletal: No symptoms reported Skin: No symptoms reported Neurological/Psychological: No symptoms reported Physical Exam - Vital signs Vitals: Temp Pulse Resp BP Pulse Ox 98.6 F 77 16 128/84 H 95 09/07/19 10:52 09/07/19 10:52 09/07/19 10:52 09/07/19 10:52 09/07/19 10:52 - Notes Notes: This is a morbidly obese 38-year-old female who appears her stated age in no acute distress. She is resting comfortably in the bed, currently pain-free. Vital signs reviewed, please refer to chart. Head is normocephalic, atraumatic. Pupils equal round, reactive to light. Neck is supple without meningismus. Heart is regular rate and rhythm. Lungs are clear to auscultation bilaterally. Abdomen is soft, nontender, normoactive bowel sounds throughout. Extremities without cyanosis, clubbing. Posterior calves are nontender. Peripheral pulses are equal. Skin is warm and dry. Patient is awake, alert, neurological exam is nonfocal. Course - Re-evaluation Re-evalutation: 09/07/19 13:14 Patient presents to the emergency department for evaluation. She is not a very forthcoming historian. She is placed on a monitor, EKG, laboratory investigations, chest x-ray were obtained. Patient does have some atypical sounding chest pain. She is currently on medroxyprogesterone, but no estrogens. She is a non-smoker. She does not have any risk factors for DVT or PE. She is not short of breath. Her heart rate is in the 60s and 70s throughout the course of her stay. Her laboratory investigations are entirely unremarkable. EKG shows no signs of ischemia or infarction. At this point, I do not have a clear etiology for this patient's symptoms. She does have primary care as well as [facility] follow-up. She is told to rest, present to the ED if she has any worsening or new concerning symptoms. She voiced understanding was discharged. - Vital Signs Vital signs: Temp Pulse Resp BP Pulse Ox 98.6 F 77 10 L 116/78 95 09/07/19 10:52 09/07/19 10:52 09/07/19 12:09/07/19 12:09/07/19 12:01 - Laboratory Result Diagrams: 09/07/19 11:40 09/07/19 11:40 Laboratory results interpreted by me: 09/07/19 11:40 BUN 6 L - Diagnostic Test Radiology reviewed: Reports reviewed Radiology results interpreted by me: 09/07/19 13:15 Chest X-Ray 09/07/19 11:12 IMPRESSION: NO SIGNIFICANT RADIOGRAPHIC FINDING IN THE CHEST. - EKG Interpretation by Me Additional EKG results interpreted by me: 09/07/19 13:15 Sinus mechanism with rate of 79 bpm. Normal axis and intervals, no acute ST changes concerning for ischemia or infarction. Discharge - Discharge Clinical Impression: Chest pain, Syncope Condition: Stable Disposition: HOME, SELF-CARE Instructions: Chest Pain of Unclear Cause ([facility]), Syncopal Episode ([facility]) Additional Instructions: No clear cause was found for your symptoms here today. Rest, continue your home medications as prescribed. Follow-up with your primary care provider tomorrow. If you develop worsening or new concerning symptoms of any sort, please return immediately to the emergency department for reevaluation. Referrals: KARI DUNLAP MD [Primary Care Provider] - Follow up as needed
[2019-09-07 13:17] VITALS: BP 147/91
--- NOTE | 2019-09-07 20:46 | EKG REPORT ---
SEVERITY:- NORMAL ECG - SINUS RHYTHM : Confirmed by: Nadir Leach 07-Sep-2019 20:45:36
== END 2019-09-07 13:35 | disposition home or self-care (01) ==
LOC: ER 10:35
DX: R07.9 Chest pain, unspecified (principal); R55 Syncope and collapse; R11.0 Nausea; R51 Headache; R42 Dizziness and giddiness; Z90.49 Acquired absence of other specified parts of digestive tract; Z98.51 Tubal ligation status
CPT/HCPCS: 36415; 71046; 80053; 84484; 85025; 93005; 93010; 99284

== ENCOUNTER 2019-12-24 08:32 | Inpatient (IN) | payer BC ==
--- NOTE | 2020-02-02 09:54 | RADIOLOGY REPORT (SQ) ---
EXAM DESCRIPTION: CHEST PA/LATERAL IMAGES COMPLETED DATE/TIME: 02/02/2020 9:37 am REASON FOR STUDY: PRE-OP COMPARISON: PA and lateral views of the chest from 09/07/2019. EXAM PARAMETERS: NUMBER OF VIEWS: Two views. TECHNIQUE: PA and lateral views of the chest were obtained. RADIATION DOSE: NA. LIMITATIONS: None. FINDINGS: LUNGS AND PLEURA: No consolidation, pleural effusion or pneumothorax. MEDIASTINUM AND HILAR STRUCTURES: No mediastinal or hilar contour abnormality. HEART AND VASCULAR STRUCTURES: The cardiac silhouette and pulmonary vasculature are within normal vargas its. BONES: No acute findings. HARDWARE: Cholecystectomy clips. OTHER: No other finding. IMPRESSION: No acute cardiopulmonary process. TECHNICAL DOCUMENTATION: JOB ID: [id number] [employer]- All Rights Reserved Reading location - IP/workstation name: [email or web address]
[2020-02-02 10:27] LABS: APPEARANCE,URINE SLIGHTLY-CLOUDY; BILIRUBIN,URINE NEGATIVE (NEGATIVE); COLOR,URINE YELLOW; GLUCOSE, URINE NEGATIVE (NEGATIVE); KETONES,URINE NEGATIVE (NEGATIVE); LEUKOCYTE ESTERASE,URINE MODERATE (NEGATIVE); NITRITE,URINE NEGATIVE (NEGATIVE); PROTEIN,URINE NEGATIVE (NEGATIVE); URINE SPECIFIC GRAVITY 1.021
[2020-02-02 10:28] LABS: HEMATOCRIT 40.9 % (36.0-47.0); HEMOGLOBIN 13.7 g/dL (12.0-15.5); MEAN CORPUSCULAR HEMOGLOBIN 29.5 pg (27.0-33.4); MEAN CORPUSCULAR HGB CONC 33.6 g/dL (32.0-36.0); MEAN CORPUSCULAR VOLUME 88 fl (80-97); PLATELET COUNT 304 10^3/uL (150-450); RED BLOOD COUNT 4.65 10^6/uL (3.72-5.28); RED CELL DISTRIBUTION WIDTH 14.4 % (11.5-14.0); WHITE BLOOD COUNT 6.4 10^3/uL (4.0-10.5)
[2020-02-02 10:50] LABS: ANION GAP 8 (5-19); BLOOD UREA NITROGEN 11 mg/dL (7-20); CALCIUM 9.4 mg/dL (8.4-10.2); CARBON DIOXIDE 26 mmol/L (22-30); CHLORIDE 104 mmol/L (98-107); GLUCOSE 107 mg/dL (75-110); POTASSIUM 4.5 mmol/L (3.6-5.0)
--- NOTE | 2020-02-02 15:01 | EKG REPORT ---
SEVERITY:- NORMAL ECG - SINUS RHYTHM : Confirmed by: Lidya Saleh MD 02-Feb-2020 15:00:04
[2020-02-12] MEDS ORDERED: LIDOCAINE 0.5% INJ-PF (5 MG/ML) 50 ML SDV SUBCUT PRN (05:00)
[2020-02-12] MEDS ORDERED: CEFAZOLIN 1 GM/D5W RTU 1 GM/50 ML RTUPB IV PRN (05:00)
[2020-02-12] MEDS ORDERED: LACTATED RINGERS 1000 ML IV PRN (05:00)
[2020-02-12] MEDS ORDERED: CEFAZOLIN 1 GM/D5W RTU 1 GM/50 ML RTUPB IV ONE (05:04)
[2020-02-12] MEDS ORDERED: MIDAZOLAM 2 MG/2 ML INJ ONE (07:02)
[2020-02-12] MEDS ORDERED: EPHEDRINE SULFATE INJ 50 MG/1 ML AMPULE ONE (07:02)
[2020-02-12] MEDS ORDERED: FENTANYL CITRATE INJ/PF 250 MCG/5 ML AMPULE ONE (07:02)
[2020-02-12] MEDS ORDERED: PROPOFOL INJ 200 MG/20 ML VIAL IV ONE (07:03)
[2020-02-12] MEDS ORDERED: BUPIVACAINE INJ/PF LIPOSOME/PF 266 MG/20 ML SDV ONE (07:10)
[2020-02-12] MEDS ORDERED: MEPERIDINE HCL/PF INJ 25 MG/1 ML DISP.SYRIN IV PRN (07:43)
[2020-02-12] MEDS ORDERED: OXYCODONE-ACETAMINOPHEN 5-325 MG TABLET PO PRN ×3 (07:43→09:19)
[2020-02-12] MEDS ORDERED: DIPHENHYDRAMINE HCL 50 MG/ML VIAL IV PRN (07:43)
[2020-02-12] MEDS ORDERED: PROMETHAZINE HCL INJ 25 MG/1 ML VIAL IV PRN ×2 (07:43)
[2020-02-12] MEDS ORDERED: FENTANYL CITRATE INJ/PF 100 MCG/2 ML AMPUL IV PRN ×3 (07:43)
--- NOTE | 2020-02-12 09:02 | Operative Report ---
Operative Report DATE OF SURGERY: 02/12/20 PREOPERATIVE DIAGNOSIS: Uterine leiomyoma POSTOPERATIVE DIAGNOSIS: Same OPERATION: Supracervical hysterectomy, bilateral salpingectomy SURGEON: ASIM PURI ANESTHESIA: GA TISSUE REMOVED OR ALTERED: Uterus, tubes COMPLICATIONS: None ESTIMATED BLOOD LOSS: 7 5 mL's INTRAOPERATIVE FINDINGS: Uterine leiomyoma, normal ovaries and tubes. Bilateral Hulka clips were removed with the tubes PROCEDURE: INDICATIONS FOR PROCEDURE: The patient had unreasonable uterine bleeding despite multiple outpatient management. She desired attempt at definitive therapy. The usual risks of bleeding, infection, anesthesia, and damage to organs or tissues was discussed with the patient who understood, and she desires attempt at definitive therapy. PROCEDURE: The patient was taken to the operating room. The patient was placed in Supine position. Adequate anesthesia was ascertained. She was prepped and draped in the usual manner for a nominal hysterectomy. EUA was performed after a time out was performed and antibiotics had been given. Bladder was drained under sterile technique. Via Pfannenstiel incision extending to subcutaneous fat and fascia the peritoneum was entered without difficulty and the abdominal contents packed out of the pelvis. A self-franco ining retractor was used and the uterus was brought into the operative field. The utero-ovarian ligaments were grasped with Warwick clamps and round ligaments were suture ligated and held. Single LigaSure advanced device the parametrium was developed down to the level uterine vessels thereafter the suture ligation and clamping was performed with a #1 chromic catgut down to the level beyond the uterine vessels. Due to the deep nature of her pelvis and the adiposity present would like to sit discontinue efforts for cervical removal since the goal of the operation have been achieved and attention was then turned to the uterus which was excised uneventfully and the cervix was oversewn with #0 chromic catgut in interrupted fashion. Attention was then turned to the tubes which were removed with the LigaSure device and good hemostasis was noted. Copious irrigation ensued correct hemostasis was confirmed and the fascia was closed #1 PDS suture double-stranded in running fashion. Exparel was used in the subcutaneous articular space and skin approximated skin gracie. The bladder was drained of a small amount of urine at the completion of the case. All sponge and needle counts were correct.
[2020-02-12] MEDS ORDERED: MORPHINE SULFATE 10 MG/ML INJ INJ PRN ×2 (09:20)
[2020-02-12] MEDS ORDERED: MORPHINE SULFATE 10 MG/ML INJ IM PRN (09:21)
[2020-02-12] MEDS ORDERED: PROMETHAZINE HCL INJ 25 MG/1 ML VIAL IM PRN (09:21)
[2020-02-12] MEDS: FENTANYL CITRATE INJ/PF 100 MCG/2 ML AMPUL ONE ×2 (09:33→09:40)
[2020-02-12] MEDS: OXYCODONE-ACETAMINOPHEN 5-325 MG TABLET PO PRN ×3 (11:08→23:31)
[2020-02-12] MEDS ORDERED: DEXAMETHASONE SOD PHOSPHATE INJ 4 MG/1 ML VIAL ONE (12:18)
[2020-02-12] MEDS ORDERED: GLYCOPYRROLATE 1 MG/5 ML VIAL ONE (12:18)
[2020-02-12] MEDS ORDERED: ROCURONIUM BROMIDE INJ 50 MG/5 ML VIAL IV ONE (12:18)
[2020-02-12] MEDS ORDERED: ONDANSETRON HCL INJ/PF 4 MG/2 ML SDV ONE (12:18)
[2020-02-12] MEDS ORDERED: NEOSTIGMINE METHYLSULFATE 10 MG/10 ML VIAL ONE (12:18)
[2020-02-12] MEDS ORDERED: SUCCINYLCHOLINE CHLORIDE INJ 200 MG/10 ML VIAL ONE (12:18)
[2020-02-12] MEDS: CEFAZOLIN 1 GM/D5W RTU 1 GM/50 ML RTUPB IV SCH ×2 (12:43→17:03)
[2020-02-12] MEDS: IBUPROFEN 800 MG TABLET PO SCH ×2 (14:22→21:07)
[2020-02-12] MEDS: RINGERS SOLUTION,LACTATED 1,000 ML IV PRN (23:34)
[2020-02-13] MEDS: IBUPROFEN 800 MG TABLET PO SCH (05:53)
[2020-02-13 06:46] LABS: HEMATOCRIT 33.8 % (36.0-47.0); HEMOGLOBIN 11.4 g/dL (12.0-15.5); MEAN CORPUSCULAR HEMOGLOBIN 29.7 pg (27.0-33.4); MEAN CORPUSCULAR HGB CONC 33.8 g/dL (32.0-36.0); MEAN CORPUSCULAR VOLUME 88 fl (80-97); PLATELET COUNT 284 10^3/uL (150-450); RED BLOOD COUNT 3.85 10^6/uL (3.72-5.28); RED CELL DISTRIBUTION WIDTH 14.5 % (11.5-14.0); WHITE BLOOD COUNT 10.2 10^3/uL (4.0-10.5)
[2020-02-13] MEDS: RINGERS SOLUTION,LACTATED 1,000 ML IV PRN (07:12)
[2020-02-13 08:41] VITALS: BP 138/80
[2020-02-13] MEDS: OXYCODONE-ACETAMINOPHEN 5-325 MG TABLET PO PRN (09:13)
== END 2020-02-13 09:22 | disposition home or self-care (01) | DRG 743 ==
LOC: INOR 02-12 05:18 → 2N 02-12 10:20
PROVIDERS: ADMIT Specialist; ATTEND Specialist
PROC: 0UT77ZZ Resection of Bilateral Fallopian Tubes, Via Natural or Artificial Opening (ICD-10-PCS; 2020-02-12)
PROC: 0UT97ZL Resection of Uterus, Supracervical, Via Natural or Artificial Opening (ICD-10-PCS; principal; 2020-02-12 07:15)
DX: N92.0 Excessive and frequent menstruation with regular cycle (principal); D25.1 Intramural leiomyoma of uterus; Z03.818 Encounter for observation for suspected exposure to other biological agents ruled out
CPT/HCPCS: 36415; 71046; 80048; 81001; 81025; 840; 85027; 86850; 86900; 86901; 87635; 88307; 93005; 93010; 94799; C9290; C9803; J0330; J0690; J1100; J2250; J2270; J2405; J2550; J2704; J2710; J3010; J3490; J7120